=== PATIENT | female | born 1960 | race Caucasian/White ===

== ENCOUNTER 2021-07-24 09:31 | Day surgery (SDC) | payer BC ==
[~2021-07-24 09:31] MED LIST: Lactated Ringers 1,000 ML IV SCH; Sodium Chloride 0.9% 10 ML Syringe FLUSH PRN; Sodium Chloride 0.9% 2.5 ML Syringe FLUSH PRN; Sodium Chloride 0.9% 20 ML SDV IV PRN
[2021-07-24] MEDS ORDERED: Propofol 200 MG/20 ML SDV ONE ×2 (09:58→10:51)
== END 2021-07-24 12:00 | disposition home or self-care (01) ==
LOC: MW.SDS 09:31
PROVIDERS: ATTEND Surgery
DX: Z12.11 Encounter for screening for malignant neoplasm of colon (principal); D12.2 Benign neoplasm of ascending colon; D12.3 Benign neoplasm of transverse colon; D12.4 Benign neoplasm of descending colon; K21.00 Gastro-esophageal reflux disease with esophagitis, without bleeding; K44.9 Diaphragmatic hernia without obstruction or gangrene; K57.30 Diverticulosis of large intestine without perforation or abscess without bleeding; K64.3 Fourth degree hemorrhoids; E03.9 Hypothyroidism, unspecified; F41.8 Other specified anxiety disorders; E55.9 Vitamin D deficiency, unspecified; G43.909 Migraine, unspecified, not intractable, without status migrainosus; F17.210 Nicotine dependence, cigarettes, uncomplicated; Z88.0 Allergy status to penicillin; Z79.899 Other long term (current) drug therapy; Z79.890 Hormone replacement therapy; Z98.890 Other specified postprocedural states
CPT/HCPCS: 43239; 45380; J2704; J7120; 00813

== ENCOUNTER 2023-02-21 19:32 | Emergency (ER) | payer BC | END 2023-02-21 20:50 | disposition home or self-care (01) | LOC: MW.ED 19:32 | DX: K08.89 Other specified disorders of teeth and supporting structures (principal); K21.9 Gastro-esophageal reflux disease without esophagitis; Z88.0 Allergy status to penicillin; Z79.899 Other long term (current) drug therapy | CPT/HCPCS: 99282 ==